=== PATIENT | female | born 1990 ===

== ENCOUNTER → 2020-11-15 | Emergency (ER) | payer OTHER ==
[~2020-11-15] VITALS: Ht 162.6 cm; Wt 70.3 kg
[2020-11-15 08:57] VITALS: BP 126/88
== END | disposition left against medical advice (07) ==
LOC: EDBD 08:44 → ER 08:44
DX: O26.892 Other specified pregnancy related conditions, second trimester (principal); R56.9 Unspecified convulsions; Z53.21 Procedure and treatment not carried out due to patient leaving prior to being seen by health care provider; Z3A.00 Weeks of gestation of pregnancy not specified